=== PATIENT | female | born 1960 | race Caucasian/White ===

== ENCOUNTER 2016-12-31 14:01 | Emergency (ER) | payer MEDICAID ==
[~2016-12-31] VITALS: Wt 89.0 kg
[2016-12-31] MEDS ORDERED: ONDANSETRON (ODT) 4 MG TAB ODT STA (15:11)
[2016-12-31] MEDS ORDERED: HYDROCODONE/APAP (5/325) TAB PO ONE (15:30)
--- NOTE | 2016-12-31 16:24 | RADRPT ---
PROCEDURE: XR Lumbar Spine. CLINICAL INDICATION: Low back pain. TECHNIQUE: AP, cone-down lateral, and lateral views of the lumbar spine were obtained. COMPARISON: None. FINDINGS: Mineralization is slightly decreased. Vertebral bodies are normal in height. No fracture is identi fied. Lumbar lordosis is preserved. Mild degenerative retrolisthesis of L4 relative to L5 is noted . End plate Schmorl's nodes are present at L1, L2 and L3. Degenerative disk narrowing is greatest at L4-5 with vacuum phenomenon but also present to a lesser degree at L2-3 and L5-S1. Facet arthrop athy is most pronounced at L4-5 and L5-S1. Paraspinal contours are unremarkable. RPTAT:HJJR IMPRESSION: 1. Facet arthropathy and degenerative disk narrowing with vacuum phenomenon L4-5 and a mild retroli sthesis at this level. 2. Multilevel anterior spondylosis with Schmorl's nodes at L1-L3. 3. Facet arthropathy and mild degenerative disk narrowing at L5-S1. Physician Jennifer Date Time Electronically viewed and signed by Physician Jennifer on 12/31/2016 16:23 JR/
--- NOTE | 2016-12-31 16:24 | RADRPT ---
PROCEDURE: XR shoulder. CLINICAL INDICATION: Pain TECHNIQUE: Three views of the right shoulder were performed. COMPARISON: None available. FINDINGS: There is normal mineralization and alignment. No fracture or osseous lesion is identified. The joint spaces are preserved. Extensive calcifications are present surrounding the humeral head concerning for a severe calcific tendinosis or bursitis RPTAT:HJJR IMPRESSION: Soft tissue calcifications along the superolateral right humeral head concerning for severe calcific tendinosis or bursitis. Physician Jennifer Date Time Electronically viewed and signed by Physician Jennifer on 12/31/2016 16:24 JR/
[2016-12-31] MEDS ORDERED: HYDR-906 PO (16:28)
[2016-12-31] MEDS ORDERED: NAPR-260 PO (16:28)
[2016-12-31 16:41] VITALS: BP 164/78; PULSE 85; RESP 18; TEMP 98.6
--- NOTE | 2016-12-31 18:37 | ERD ---
DATE OF SERVICE: HISTORY OF PRESENT ILLNESS: The patient is a 56-year-old female complaining of right shoulder pain and lower back pain after a fall yesterday. She has not taken medications for her symptoms. She tom s no numbness or tingling. She did not have loss of consciousness. No vomiting. She has not had a ny difficulty ambulating. She has had pain with movement of her arm. PAST MEDICAL HISTORY: She has no other medical problems. ALLERGIES: DENIES. PAST SURGICAL HISTORY: Denies. HOSPITALIZATIONS: Denies. REVIEW OF SYSTEMS: A 12-point review of systems was done. Refer to HPI for positives, all other sy stems negative. PHYSICAL EXAMINATION VITAL SIGNS: Temperature is 98.6, pulse 90, blood pressure is 139/79, respiratory 18, O2 saturation 98% on room air. Pain intensity is 0/10. GENERAL: The patient is well-appearing, well-nourished, no acute distress. HEART: Regular rate and rhythm. No murmurs, clicks, rubs, or gallops. No S3 or S4. CHEST: Clear to auscultation bilaterally. There are no rales, wheezes, or rhonchi. HEENT: Atraumatic. Conjunctivae are pink. Pupils equal, round, and reactive to light. There is n o scleral icterus. Tympanic membranes clear bilaterally. Oropharynx clear. No nystagmus or photop hobia. ABDOMEN: Soft, nontender and nondistended. Good bowel sounds. No rebound or guarding. No gross p eritonitis. No gross organomegaly or masses. No Holden sign or McBurney point tenderness. EXTREMITIES: The patient has mild tenderness to palpation over the right shoulder. There is no cre pitus, no deformity. The patient has mild limited range of motion secondary to pain. The patient's die fitter is within normal limits and pulses are within normal limits. No obvious swelling, no ecchymos is. No lacerations or abrasions. BACK: The patient has mild tenderness to palpation over the left lower paraspinous muscles in the l umbar region. There is no midline tenderness. The patient has normal range of motion. NEUROLOGIC: The patient has normal neuro exam. EMERGENCY ROOM COURSE: The patient had a 3-view x-ray done of the right shoulder, which showed soft tissue calcifications along the superior lateral right humeral head concerning her severe calcific tendinosis or bursitis. The patient also had a 3-view x-ray done of the lumbar spine, which showed facet arthropathy and degenerative disk narrowing with vacuum phenomenon of L5, L4, and mild retroli sthesis at this level. Multilevel anterior spondylosis with Schmorl nodes L1-L3 and 3 facet arthrop athy, and mild degenerative disk narrowing at L5-S1. The patient was given Markesan and Zofran in the ER. Upon reevaluation, the patient stated her pain improved and she was relieved to hear that was n o fracture or dislocation. DIAGNOSES: 1. Fall. 2. Musculoskeletal contusion. MEDICAL DECISION MAKING: I have low suspicion for acute fracture or dislocation. Low suspicion for neuro deficit. Low suspicion for tendon or ligament injuries or compartment syndrome. Low suspici on for intracranial hemorrhage or mass effect. The patient's exams are within normal limits. DISCHARGE: The patient is discharged stable. The patient is given prescription for naproxen and No rco and told to follow up with primary care within 1 to 2 days for reevaluation. The patient was to ld if symptoms progress or worsen to return to the ER. All questions answered at time of discharge. Discharge summary given at the time of departure. The patient understood and complied with plan. Dictated By: BILL DOBBS for MARI DINH/DHARMESH Conf#: [id number] DID#: [id number]
== END 2016-12-31 16:42 | disposition home or self-care (01) ==
LOC: FTE 14:01
DX: S40.011A Contusion of right shoulder, initial encounter (principal); S30.0XXA Contusion of lower back and pelvis, initial encounter; W18.39XA Other fall on same level, initial encounter; Y92.9 Unspecified place or not applicable
CPT/HCPCS: 72100; 73030; Z7502; Z7610